=== PATIENT | male | born 1960 | race African-American/Black ===

== ENCOUNTER 2024-09-06 16:06 | Emergency (ER) | payer SELFPAY | END 2024-09-06 17:07 | disposition home or self-care (01) | LOC: MW.ED 16:06 | DX: Z76.0 Encounter for issue of repeat prescription (principal); I10 Essential (primary) hypertension; E78.5 Hyperlipidemia, unspecified; Z79.899 Other long term (current) drug therapy; Z75.8 Other problems related to medical facilities and other health care | CPT/HCPCS: 99281; 99283 ==